=== PATIENT | female | born 2005 | race Caucasian/White ===

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

== ENCOUNTER 2025-03-08 20:09 | Emergency (ER) | payer BC ==
[2025-03-08] MEDS ORDERED: diphenhydrAMINE 50 MG/ML VIAL ONE (22:55)
[2025-03-08] MEDS ORDERED: Ketorolac Tromethamine 30 MG (1 mL) VIAL ONE (22:55)
[2025-03-08] MEDS ORDERED: Metoclopramide HCl 10 MG (2 mL) VIAL ONE (22:55)
[2025-03-08 22:59] LABS: #Basophils 0.05 10x3/uL (0.0-0.2); #Eosinophils 0.06 10x3/uL (0.0-0.7); #Monocytes 0.80 10x3/uL (0.11-0.59); #Neutrophils 12.91 10x3/uL (1.40-6.50); %Basophils 0.3 % (0.0-1.0); %Eosinophils 0.4 % (0.0-10.0); %Lymphocytes 13.3 % (28.0-48.0); %Monocytes 5.0 % (0.0-4.0); %Neutrophils 80.7 % (31.0-61.0); Hematocrit 38.0 % (36.0-47.0); Hemoglobin 12.6 g/dL (12.0-16.0); Mean Corpuscular Hemoglobin 28.4 pg (25.0-35.0); Mean Corpuscular Volume 85.8 fL (78.0-98.0); Platelet Count 290 10x3/uL (130-400); Red Blood Cell (RBC) Count 4.43 mill/uL (4.00-5.20); White Blood Cell (WBC) Count 15.98 10x3/uL (4.8-10.8)
[2025-03-08 23:21] LABS: ALT (SGPT) 11 U/L (Less than 34); AST (SGOT) 30 U/L (11-34); Albumin 4.6 g/dL (3.1-4.5); Alkaline Phosphatase 86 U/L (40-100); Anion Gap 15 mmol/L (10-20); BHCG - Serum Negative (NEGATIVE); BUN (Urea Nitrogen) 12 mg/dL (8.4-21.0); Bilirubin, Total 0.2 mg/dL (0.3-1.2); Calc. Creatinine Clearance 0 mL/min (70-130); Calcium 10.3 mg/dL (7.8-10.44); Carbon Dioxide 25 mmol/L (22-29); Chloride 105 mmol/L (98-107); Globulin 3.7 g/dL (2.4-3.5); Glucose 100 mg/dL (70-105); Potassium 3.7 mmol/L (3.5-5.1); Pregs Control Background? CLEAR/WHITE (CLR/WHITE); Pregs Control Bar Appear? YES (CONTROL BAR); Sodium 141 mmol/L (136-145)
[2025-03-08 23:22] LABS: Acetaminophen Less than 10 mcg/mL (Less than 10); Salicylate Less than 8.0 mg/dL (Less than 8.0)
== END 2025-03-09 00:29 | disposition home or self-care (01) ==
LOC: ERS 20:09
DX: R42 Dizziness and giddiness (principal); R51.9 Headache, unspecified; I10 Essential (primary) hypertension; D72.829 Elevated white blood cell count, unspecified; R29.700 NIHSS score 0
CPT/HCPCS: 70450; 80053; 80307; 84484; 84703; 85025; 93005; 96365; 96375; J1200; J1885; J2765